=== PATIENT | male | born 1995 | race Caucasian/White ===

== ENCOUNTER 2019-04-11 03:43 | Emergency (ER) | payer OTHER ==
[~2019-04-11 03:43] MED LIST: KETOROLAC TROME10 MG PO; NO HOME MEDICATIONS
[2019-04-11 04:37] LABS: EOS # 0.2 (0.04-0.40); EOS % 1.5 % (0.0-4.0); HEMATOCRIT 48.2 % (42.0-52.0); LYMPH# 2.8 (1.50-4.00); MEAN CELL VOLUME 92 fl (78-100); MEAN CORPUSCULAR HEMOGLOBIN 33 pg (27-31); MEAN CORPUSCULAR HGB CONC 35 g/dL (33-37); MEAN PLATELET VOLUME 10.7 fl (7.4-10.4); MONO # 1.4 (0.20-0.80); PLATELET COUNT 222 K/mm3 (130-400); RED BLOOD COUNT 5.22 M/mm3 (4.20-5.60); RED CELL DISTRIBUTION WIDTH 13.2 % (11.5-14.5); WHITE BLOOD COUNT 14.9 K/mm3 (4.8-10.8)
[2019-04-11 04:45] LABS: ALBUMIN 4.4 g/dL (3.5-5.0); POTASSIUM 3.8 mmol/L (3.5-5.1)
[2019-04-11 04:46] LABS: CALCIUM 8.8 mg/dL (8.3-10.5)
[2019-04-11 04:49] LABS: TOTAL BILIRUBIN 0.4 mg/dL (0.2-1.2)
[2019-04-11 04:50] LABS: NEU # 10.3 (1.40-6.50)
[2019-04-11 07:24] VITALS: BP 142/65
== END 2019-04-11 07:24 ==
LOC: ED 03:43
PROVIDERS: Physician Assistant
DX: S02.2XXA Fracture of nasal bones, initial encounter for closed fracture (principal); S02.40CA Maxillary fracture, right side, initial encounter for closed fracture; J45.909 Unspecified asthma, uncomplicated; F17.210 Nicotine dependence, cigarettes, uncomplicated; F12.90 Cannabis use, unspecified, uncomplicated; X58.XXXA Exposure to other specified factors, initial encounter

== ENCOUNTER → 2020-01-13 | Outpatient (CLI) | payer OTHER | LOC: RAD 15:42 | DX: M48.061 Spinal stenosis, lumbar region without neurogenic claudication (principal); M43.06 Spondylolysis, lumbar region ==